=== PATIENT | female | born 1990 | race Caucasian/White ===

== ENCOUNTER 2018-10-28 18:42 | Emergency (ER) | payer MEDICAID ==
[~2018-10-28] VITALS: Ht 157.5 cm; Wt 69.4 kg
[2018-10-28 19:13] VITALS: BP 129/77
[2018-10-28 21:37] VITALS: BP 129/77
== END 2018-10-28 21:37 | disposition home or self-care (01) ==
LOC: MED 18:42
DX: S06.0X0A Concussion without loss of consciousness, initial encounter (principal); W18.39XA Other fall on same level, initial encounter; Y93.89 Activity, other specified; Y92.89 Other specified places as the place of occurrence of the external cause; Y99.8 Other external cause status
CPT/HCPCS: 70450; 72125; 81025; 99284

== ENCOUNTER 2019-11-20 13:12 | Emergency (ER) | payer MEDICAID ==
[~2019-11-20] VITALS: Ht 154.9 cm; Wt 65.8 kg
[2019-11-20 13:32] VITALS: BP 116/64
--- NOTE | 2019-11-20 13:34 | NUR ---
TRIAGE COMPLETE. VSS. RETURNED TO LOBBY TO WAIT FOR BED IN ED.
--- NOTE | 2019-11-20 14:40 | NUR ---
PATIENT TAKEN TO CHAIR A AT THIS TIME
--- NOTE | 2019-11-20 14:45 | NUR ---
29/F PRESENTS SELF TO ED, C/O CONSTANT BL EAR RINGING X3 DAYS. REPORTS PRESSURE-LIKE SENSATION ON BL EARS. ALSO C/O DIZZINESS X2 DAYS. ALSO C/O SUBJECTIVE COLD SWEATS AND COUGH LAST NIGHT. PT AWAKE AND ALERT, SKIN NORMAL COLOR WARM AND DRY. DENIES MED HX OR RX. DAILY COFFEE DRINKER, LAST ALCOHOL DRINK LAST WEEKEND, DENIES DRUG USE.
[2019-11-20 16:04] VITALS: BP 132/67
--- NOTE | 2019-11-20 16:04 | NUR ---
Patient discharged with v/s stable. Written and verbal after care instructions given and explained. Patient alert, oriented and verbalized understanding of instructions. Ambulatory with steady gait. All questions addressed prior to discharge. ID band removed. Patient advised to follow up with PMD. Rx of MECLIZINE, BENADRYL given. Patient educated on indication of medication including possible reaction and side effects. Opportunity to ask questions provided and answered.
== END 2019-11-20 16:04 | disposition home or self-care (01) ==
LOC: MED 13:12
DX: H93.19 Tinnitus, unspecified ear (principal)
CPT/HCPCS: 99282

== ENCOUNTER 2019-11-25 08:23 | Emergency (ER) | payer MEDICAID ==
[~2019-11-25] VITALS: Ht 162.6 cm; Wt 65.8 kg
[2019-11-25 08:30] VITALS: BP 125/86
--- NOTE | 2019-11-25 08:37 | NUR ---
Patient ambulated to bed 7. RN evaluating patient at bedside.
--- NOTE | 2019-11-25 08:46 | NUR ---
SUDDEN ONSET OF NAUSEA AND VOMITING YESTERDAY WITH WATERY STOOLS LAST NIGHT- ADMITS TAKING PEPTO BISMOL LAST NIGHT--- STOOLS APPEARED DARK IN COLOR THIS AM---
[2019-11-25] MEDS ORDERED: ONDANSETRON 4 MG/2 ML VIAL IVP ONE (08:50)
[2019-11-25] MEDS ORDERED: NACL 0.9% 1,000 ML IV ONE (08:50)
--- NOTE | 2019-11-25 10:18 | NUR ---
Dr. De Dios updating pt on plan of care. Pt pending discharge after fluids finish.
[2019-11-25 10:48] VITALS: BP 118/69
--- NOTE | 2019-11-25 10:49 | NUR ---
Patient discharged with v/s stable. Written and verbal after care instructions given and explained. Pt encouraged to drink plenty of fluid. Patient alert, oriented and verbalized understanding of instructions. Ambulatory with steady gait. All questions addressed prior to discharge. ID band removed. Patient advised to follow up with PMD. Rx of Loperamide 2mg and and Zofran 4mg was given. Patient educated on indication of medication including possible reaction and side effects. Opportunity to ask questions provided and answered.
--- NOTE | 2019-11-26 12:36 | NUR ---
Late entry. Confirmed with RN that 0.9 NS IV completed at 1000.
== END 2019-11-25 10:49 | disposition home or self-care (01) ==
LOC: MED 08:23
DX: R11.2 Nausea with vomiting, unspecified (principal); R19.7 Diarrhea, unspecified
CPT/HCPCS: 81025; 96361; 96374; 99283; J2405; J7030

== ENCOUNTER 2021-05-05 10:51 | Emergency (ER) | payer MEDICAID ==
[~2021-05-05] VITALS: Ht 152.4 cm; Wt 59.0 kg
[2021-05-05 11:01] VITALS: BP 103/64
[2021-05-05] MEDS ORDERED: SODIUM PHOSPHATE 118 ML ENEM RC ONE (12:20)
[2021-05-05] MEDS ORDERED: MAGNESIUM CITRATE 300 ML BTL PO ONE (14:30)
[2021-05-05 15:00] LABS: APPEARANCE,URINE CLEAR (CLEAR); BILIRUBIN,URINE NEGATIVE (NEGATIVE); BLOOD, URINE NEGATIVE (NEGATIVE); COLOR,URINE YELLOW (YELLOW); LEUKOCYTE ESTERASE ,URINE NEGATIVE (NEGATIVE); NITRITE, URINE NEGATIVE (NEGATIVE); UGLUCOSE NEGATIVE (NEGATIVE)
[2021-05-05 15:13] VITALS: BP 119/60
[2021-05-05] MEDS ORDERED: MIRABULK PO (16:06)
[2021-05-05] MEDS ORDERED: DOCU-299 PO (16:06)
== END 2021-05-05 16:13 | disposition home or self-care (01) ==
LOC: MED 10:51
DX: O26.891 Other specified pregnancy related conditions, first trimester (principal); K59.00 Constipation, unspecified; O21.9 Vomiting of pregnancy, unspecified; Z3A.08 8 weeks gestation of pregnancy
CPT/HCPCS: 81003; 87086; 99284

== ENCOUNTER 2022-10-02 08:15 | Emergency (ER) | payer MEDICAID ==
[~2022-10-02] VITALS: Ht 154.9 cm; Wt 65.8 kg
[~2022-10-02 08:15] MED LIST: DOCU-299 PO; MIRABULK PO
[2022-10-02 08:34] VITALS: BP 121/78
[2022-10-02] MEDS ORDERED: KETOROLAC 60 MG/2 ML VIAL IM ONE (08:50)
--- NOTE | 2022-10-02 09:11 | NUR ---
US AT BEDSIDE
[2022-10-02 09:21] LABS: BASOPHILS % (AUTO) 0.4 % (0.0-2.0); EOSINOPHILS # (AUTO) 0.1 K/uL (0-0.4); EOSINOPHILS % (AUTO) 1.1 % (0.0-4.0); HEMATOCRIT 38.7 % (36-48); HEMOGLOBIN 13.1 g/dL (12.0-16.0); LYMPHOCYTES # (AUTO) 1.5 K/uL (2.5-16.5); LYMPHOCYTES % (AUTO) 20.8 % (20.5-51.1); MEAN CORPUSCULAR HEMOGLOBIN 30 pg (27-31); MEAN CORPUSCULAR HGB CONC 34 g/dL (33-37); MEAN CORPUSCULAR VOLUME 89.6 fL (80-94); MONOCYTES # (AUTO) 0.5 K/uL (0.8-1.0); MONOCYTES % (AUTO) 6.9 % (1.7-9.3); NEUTROPHILS # (AUTO) 5.1 K/uL (1.8-7.7); NEUTROPHILS % (AUTO) 70.8 % (42.2-75.2); PLATELET COUNT (AUTO) 285 K/uL (140-450); RED BLOOD CELL COUNT(AUTO) 4.32 MIL/uL (4.20-5.40); RED CELL DISTRIBUTION WIDTH 13.2 % (11.6-13.7); WHITE BLOOD COUNT (AUTO) 7.1 K/uL (4.8-10.8)
--- NOTE | 2022-10-02 09:30 | NUR ---
31YO FEMALE PT C/O THROBBING 10/10 LOWER ABDOMINAL AND PELVIC PAIN X3DAYS. NEW ONSET OF MILD VAGINAL BLEEDING XTODAY. STATES INITIAL PAIN STARTED AFTER SEXUAL INTERCOURSE. PAIN AT MOST WHEN BEARING DOWN. MILD RELIEF AFTER TYLENOL. ABDOMEN NON TENDER OR DISTENED. PT AAOX4, RESPIRATIONS EVEN AND UNLABORED. HOB POSITIONED PER COMFORT. HX:DENIES NKA
[2022-10-02 09:36] LABS: APPEARANCE,URINE CLEAR (CLEAR); BILIRUBIN,URINE NEGATIVE (NEGATIVE); BLOOD, URINE 3+ (NEGATIVE); COLOR,URINE YELLOW (YELLOW); LEUKOCYTE ESTERASE ,URINE NEGATIVE (NEGATIVE); NITRITE, URINE NEGATIVE (NEGATIVE); UGLUCOSE NEGATIVE (NEGATIVE)
[2022-10-02 09:50] LABS: ALBUMIN 3.5 g/dL (3.4-5.0); ANION GAP 10.4 (8-16); CARBON DIOXIDE 27.2 mmol/L (21-32); CREATININE 0.8 mg/dL (0.6-1.3); POTASSIUM 4.6 mmol/L (3.5-5.1); TOTAL BILIRUBIN 0.3 mg/dL (0.0-1.0)
[2022-10-02 09:54] LABS: RBC,URINE 0-5 /HPF (0-5); WBC,URINE 0-5 /HPF (0-5)
[2022-10-02] MEDS ORDERED: NAPR-54 PO (10:15)
[2022-10-02 10:34] VITALS: BP 110/77
--- NOTE | 2022-10-02 10:34 | NUR ---
Patient discharged with v/s stable. Written and verbal after care instructions FOR PELVIC PAIN AND OVARIAN CYST/RUPTURE given and explained. Patient alert, oriented and verbalized understanding of instructions. Ambulatory with steady gait. All questions addressed prior to discharge. ID band removed. Patient advised to follow up with PMD. Rx of NAPROXEN given. Opportunity to ask questions provided and answered.
--- NOTE | 2022-10-02 10:39 | NUR ---
The patient's care was reviewed and supervised by ED Agency Nurse 9, RN, RN.
== END 2022-10-02 10:39 | disposition home or self-care (01) ==
LOC: MED 08:15
DX: N93.9 Abnormal uterine and vaginal bleeding, unspecified (principal); R10.2 Pelvic and perineal pain; Z79.1 Long term (current) use of non-steroidal anti-inflammatories (NSAID); Z79.899 Other long term (current) drug therapy
CPT/HCPCS: 36415; 76856; 80053; 81001; 81025; 85025; 93976; 96372; 99284; J1885; Q0092

== ENCOUNTER 2023-12-13 18:31 | Emergency (ER) | payer MEDICAID ==
[~2023-12-13] VITALS: Ht 154.9 cm; Wt 65.8 kg
[~2023-12-13 18:31] MED LIST changes: +NAPR-54 PO
[2023-12-13 19:28] VITALS: BP 131/74; PULSE 98; RESP 16; TEMP 98.7; O2SAT 98
[2023-12-13] MEDS ORDERED: SUD30 PO (19:29)
[2023-12-13] MEDS ORDERED: PROM118S6 PO (19:29)
[2023-12-13] MEDS ORDERED: BENZ200C4 PO (19:29)
[2023-12-13] MEDS ORDERED: PRED20TA5 PO (19:29)
[2023-12-13] MEDS ORDERED: ALBU0.0912 IH (19:29)
[2023-12-13 19:53] VITALS: PULSE 114; RESP 28; O2SAT 100
[2023-12-13] MEDS: ALBUTEROL 0.083% 2.5 MG/3 ML NEBU INH ONE (19:53)
[2023-12-13] MEDS: KETOROLAC 30 MG/ML VIAL IM ONE (20:09)
[2023-12-13 20:42] LABS: FLU A ANTIGEN negative (NEGATIVE); FLU B ANTIGEN NEGATIVE (NEGATIVE)
[2023-12-13 21:08] VITALS: BP 131/64; PULSE 88; RESP 20; TEMP 98; O2SAT 100
== END 2023-12-13 21:09 | disposition home or self-care (01) ==
LOC: MED 18:31
DX: J20.9 Acute bronchitis, unspecified (principal); Z20.822 Contact with and (suspected) exposure to COVID-19; Z79.899 Other long term (current) drug therapy; Z90.49 Acquired absence of other specified parts of digestive tract
CPT/HCPCS: 71046; 81025; 87426; 87804; 94640; 96372; 99284; J1885; J7613